=== PATIENT | female | born 1945 | race Caucasian/White ===

== ENCOUNTER → 2018-02-25 09:36 | Outpatient (BNVA) | payer MEDICARE, OTHER, SELFPAY | PROVIDERS: Visit Provider Surgery | DX: D12.6 Benign neoplasm of colon, unspecified (principal) | CPT/HCPCS: 99213 ==

== ENCOUNTER 2018-03-08 06:06 | Day surgery (SDC) | payer MEDICARE, SELFPAY ==
[2018-03-08 06:15] VITALS: BP 114/68; PULSE 67; RESP 16; TEMP 36.7; O2SAT 99
--- NOTE | 2018-03-08 06:30 | W.COLOREPORT ---
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 Castillo is a pleasant 72 year old who underwent a colonoscopy a few months ago and was found to have a sessile serrated adenoma with high grade dysplacia in the cecum. She is here today to have another colonoscopy and make sure the polyp has not regrown. Risks, benefits and complications have been reviewed. Complications include but are not limited to bleeding, pain, perforation, missed small lesion/polyp, sore throat, aspiration and adverse reaction to the medications. Questions were entertained and answered to their satisfaction and they wished to proceed. No guarantees were given or implied. Prep: Miralax/Dulcolax Procedure Start Time: 07:29 Procedure End Time: 08:03 Retraction Time: 22 minutes Findings: 4 small polyps. NO sessile polyp in the cecum. Moderate diverticulosis Procedure Description: After informed consent was obtained the patient was taken to the procedure room and placed in a left decubitous position. Monitors were applied and a time out was done. The patients name, date of , procedure, allergies to medications and metal in their body was reviewed. The patient was then sedated. Once sedated and comfortable a rectal exam was done. External exam was normal. Internal exam revealed a normal sphincter tone and no palpable masses. The scope was then introduced and retroflexed. No internal hemorrhoids were identified. The scope was then advanced to the cecum without difficulty. The TI and appendiceal orifice were identified. The prep was adequate. The scope was then slowly retracted over 22 minutes back into the rectum. 4 polyps were identified and removed with forceps. No sessile polyps were identified in the cecum. Scar tissue noted in the cecum without apparent re-growth. The scope was removed and the patient was woken up and taken back to Same day surgery in stable condition. The patient tolerated the procedure well and there were no immediate complications. Follow up: The patient should follow up in 3 years unless they develop changes in bowel habits or other new gastrointestinal complaints.
[2018-03-08] MEDS: Lactated Ringers 1,000 ML 80 ML IV (06:35)
--- NOTE | 2018-03-08 06:35 | PDOC.DSDIS_ITS ---
Discharge Plan Disposition Patient Disposition: HOME Condition: Good Discharge Details Reason For Visit: Colonoscopy Attending Provider: Vane Seals Primary Care Provider: Eugenia Caal Home Meds and New Rx's Prescriptions: Continue levothyroxine 100 MCG tablet 100 mcg PO DAILY RF: 0 acyclovir 800 MG tablet 800 mg PO PRN RF: 0 lysine [L-Lysine] 500 MG tablet 500 mg PO DAILY RF: 0 glucosamine sulfate 2KCl 1,000 MG tablet 1,600 mg PO DAILY RF: 0 fish oil-dha-epa 1 EACH capsule 1 ea PO DAILY RF: 0 Discharge Instructions Instructions: Colonoscopy (DC), Colorectal Polyps (DC) Additional Instructions: Findings: 4 small polyps Diverticulosis Follow up: 3 years New Medications: none Please call if you develop: fevers >101.5 Nausea or Vomiting Abdominal pain that is not transient DAY SURGERY UNIT POST COLONOSCOPY INSTRUCTIONS 1. Because there will be medication in your system for the next 24 hours, you may feel a little sleepy. Your coordination will be affected. Therefore: a. Do not drive or operate dangerous equipment for 24 hours. b. Do not drink alcohol beverages for 24 hours (not even beer). c. Plan to go home and rest for the day. 2. Generally there are no restrictions on your activity after a day or so has gone by, but you may feel a bit fatigued for a few days. 3 After you arrive home you may have a light meal and return to a normal diet as you can tolerate it without feeling sick to your stomach. 4. After surgery, you may feel pain or discomfort. This should be only transient , but if it persists please contact your doctor. 5. If there are any questions regarding the findings of your procedure, please feel free to contact your doctor. 6. If you are unable to contact your doctor with a problem, contact the hospital at [phone]. 7. Continue all your regular medications unless directed otherwise. I understand the above instructions and have no questions. Signature of Patient or Responsible Adult Escort Date/Time Name of Responsible Adult Escort Signature of Nurse Date/Time Activity:: Activity as Tolerated Diet:: high fiber diet Discharge Orders Discharge Orders: Discharge Order (Routine); Ordered 03/08/18 Ordered By: Vane Seals
--- NOTE | 2018-03-08 07:40 | BOWEL_PTH ---
PATIENT: Jessie Castillo LOC: [facility] U#:[id number] AGE/SX: 72/F ROOM: RE03/08/[address]: Vane Seals MD : 1945 BED: DIS: 03/08/2018 SPEC #: [id number] RECD: 03/08/18 12:42 STATUS: ROBYN REQ #: [id number] RASHEED: 03/08/18 07:[address]: Vane Seals DEPT: Surgical Specimen RECD BY: Yari Da Silva ENTERED: 03/08/18 12:44 SP TYPE: Bowel OTHR DR: Eugenia Caal Tissues: 1 - BIOPSY BOWEL 2 - BIOPSY BOWEL 3 - BIOPSY BOWEL 4 - BIOPSY BOWEL Procedures: GROSS AND MICRO LEVEL 4 Comments: [id number]
[2018-03-08 08:35] VITALS: BP 122/71; PULSE 61; RESP 16; TEMP 36.4; O2SAT 98
== END 2018-03-08 09:06 | disposition home or self-care (01) ==
PROVIDERS: PCP Nurse Practitioner Family; Visit Provider Surgery
PROC: 0DJD8ZZ Inspection of Lower Intestinal Tract, Via Natural or Artificial Opening Endoscopic (ICD-10-PCS; CPT 45378; principal; 2018-03-08 07:30)
DX: Z86.010 Personal history of colon polyps (principal); K57.30 Diverticulosis of large intestine without perforation or abscess without bleeding; D12.0 Benign neoplasm of cecum; D12.2 Benign neoplasm of ascending colon; D12.3 Benign neoplasm of transverse colon; D12.5 Benign neoplasm of sigmoid colon
CPT/HCPCS: 45380; 88305

== ENCOUNTER → 2018-03-08 07:53 | Outpatient (BNVA) | payer MEDICARE, SELFPAY | PROVIDERS: Visit Provider Surgery | DX: R69 Illness, unspecified (principal) ==

== ENCOUNTER 2018-09-13 09:22 | Outpatient (REF) | payer MEDICARE, SELFPAY ==
[2018-09-13 12:50] LABS: Anion Gap 7.8 mmol/L (3-11); BUN 20 mg/dL (7-18); CO2 29.2 mmol/L (21.0-32.0); CREATININE 0.98 mg/dL (0.55-1.02); Calcium 8.9 mg/dL (8.5-10.1); Chloride 103 mmol/L (98-107); Cholesterol 150 mg/dL (50-200); Estimated GFR 55.95 (mL/min/1.73m2); Glucose 96 mg/dL (70-100); HDL Cholesterol 81 mg/dL (40-60); LDL CHOLESTEROL 49 mg/dL (<100); Potassium 4.3 mmol/L (3.5-5.1); Sodium 140 mmol/L (136-145); Triglyceride 43 mg/dL (30-150)
== END 2018-09-13 09:42 ==
LOC: NCHCN 09:22
PROVIDERS: PCP Nurse Practitioner Family; Visit Provider Nurse Practitioner Family
DX: E03.9 Hypothyroidism, unspecified (principal); R73.09 Other abnormal glucose; N18.3 Chronic kidney disease, stage 3 (moderate)
CPT/HCPCS: 80048; 80061; 83721; 84443

== ENCOUNTER 2019-03-01 16:13 | Emergency (ER) | payer MEDICARE, SELFPAY ==
[2019-03-01 16:19] VITALS: BP 139/77; PULSE 105; RESP 20; O2SAT 92
--- NOTE | 2019-03-01 16:32 | W.ED.GENAD ---
Discharge Plan Disposition Patient Disposition: HOME Condition: Stable Discharge Details Chief Complaint: RespSymp Clinical Impression: Cough Primary Care Provider: Eugenia Caal ED Provider: Jony Walker Home Meds and New Rx's Prescriptions: New doxycycline hyclate 100 mg tablet 100 mg PO BID Qty: 14 RF: 0 Continued levothyroxine 100 MCG tablet 100 mcg PO DAILY RF: 0 acyclovir 800 MG tablet 800 mg PO PRN RF: 0 Discharge Instructions Instructions: Acute Cough (ED) Additional Instructions: if not better within a week see your primary care provider return to the emergency department if you feel you are becoming more ill, have worsening shortness of breath or pain Medical Decision Making 73 yo female who denies chronic medical problems comes in with chief complaint of cough for 3 weeks and also body aches and myalgias. Denies any travel, fevers, chest pain. She Is speaking in full sentences on exam, has mild wheezing at the apices bilaterally otherwise clear lungs, has clear rhinorrhea, no murmurs, no jvd or peripheral edema. Given her symptoms of cough and myalgias will evaluate for influenza and obtain cxr to evaluate for infiltrates. She has no evidence of dvt, and no pleuritic chest pain and her symptoms seem more infectious so doubt entities such as PE or acs. pt's labs and imaging negative other than lung nodule.. She remains stable. Given her cough has not improved over 2 weeks will tx as possible cap and have her f/u with her pcp. Return precautions given Differential Diagnosis Differential Diagnosis: uri, influenza, pna Imaging Data Radiologic Study: Attestation: I personally reviewed and interpreted this imaging study as follows: Imaging: X-Ray Lab Data Lab results reviewed: Yes I reviewed the patient's lab results. Labs: IMPRESSION: 1. No acute abnormality seen to account for the patient's cough. 2. Questionable nodule at the left lung apex that may just be pleural thickening. Apical lordotic view of the chest is recommended to evaluate further. HPI General Mode of arrival: ambulatory. Date/Time Provider Initiated Documentation: 03/01/19 16:24. Limitations to Documentation: no limitations. Information obtained by: patient. History of Present Illness 73 year old F presents to the emergency department with the chief complaint of cough, described as moderate, and it has been constant. No relieving factors improve symptom(s), No exacerbating factors reported . Patient did receive the following treatments prior to arrival, none Related Data Home Medications Medication Instructions Recorded Confirmed levothyroxine 100 mcg PO DAILY tab-cap 02/19/14 03/01/19 acyclovir 800 mg PO PRN 07/12/17 03/01/19 doxycycline hyclate 100 mg PO BID #14 tab 03/01/19 Previous Rx's Medication Instructions Recorded doxycycline hyclate 100 mg PO BID #14 tab 03/01/19 Allergies Allergy/AdvReac Type Severity Reaction Status Date / Time No Known Allergies Allergy Verified 03/08/18 06:14 General Stated Complaint: RespSymp GONZALES: 3 Review of Systems Review of Systems ROS Unobtainable: All systems reviewed & are unremarkable except as noted in HPI and below Constitutional Constitutional: Denies chills, Denies fever(s) and Denies weakness Gastrointestinal Gastrointestinal: Denies abdominal pain, Denies nausea and Denies vomiting Musculoskeletal Musculoskeletal: Denies joint swelling Neurologic Neurologic: Denies weakness Endocrine Endocrine: Denies heat intolerance PENDING SALE TO [facility] Medical History (Updated 02/25/18 @ 10:03 by Vane Seals MD) High grade dysplasia in colonic adenoma (Acute) Hypothyroidism associated with surgical procedure Tubular adenoma of colon Surgical History Colonoscopy - MAC (04/20/14) Colonoscopy - MAC (08/16/17) thyroidectomy Family History (Updated 02/25/18 @ 10:04 by Vane Seals MD) Maternal Grandfather No problems noted. Maternal Grandmother Diabetes Social History (Updated 02/25/18 @ 10:05 by Vane Seals MD) Smoking/Tobacco Use Status: Never Alcohol Intake: current Alcohol Intake frequency: holidays/special occasions only Drug use: Occasionally Substance use type: does not use Exam Const General: no acute distress Orientation: alert HENMT Head: normal to inspection Ears: external ears normal General nose exam: external nose normal Mouth: moist mucous membranes Eyes General: appearance normal, both eyes and all related structures Neck Neck: normal visual inspection Resp Effort & Inspection: normal respiratory effort and able to speak in complete sentences Cardio Rate: regular rate Skin General skin exam: no rashes or lesions noted Neuro General: alert and oriented x3 Extrem General: normal to inspection Psych Mental Status: mental status grossly normal Course Vital Signs Vital signs: Vital Signs Pulse 105 H 03/01/19 16:19 Respiratory Rate 20 03/01/19 16:19 Blood Pressure 139/77 03/01/19 16:19 Pulse Oximetry 92 L 03/01/19 16:19 Pulse 105 H 03/01/19 16:19 Respiratory Rate 20 03/01/19 16:19 Blood Pressure 139/77 03/01/19 16:19 Blood Pressure Position Sitting 03/01/19 16:19 Pulse Oximetry 92 L 03/01/19 16:19 Oxygen Delivery Method Room Air 03/01/19 16:19 Oxygen Flow Rate 0 03/01/19 16:19
[2019-03-01] MEDS: Albuterol/Ipratropium 3 ML UPD VIAL UPD (16:40)
[2019-03-01 16:48] LABS: Abs Immature Grans 0.03 k/cumm (0.0-0.09); Absolute Basophil Count 0.03 k/cumm (0.0-0.2); Absolute Eosinophil Count 0.01 k/cumm (0.0-0.7); Absolute Lymphocyte Count 0.74 k/cumm (1.2-3.4); Absolute Monocyte Count 1.33 k/cumm (0.11-0.7); Absolute Neutrophil Count 12.35 k/cumm (1.2-6.7); Basophils % 0.2; Eosinophils % 0.1; HGB 12.7 g/dL (12.0-15.5); Immature Grans % 0.2; Lymphocytes % 5.1; Mean Corp. HGB Concentration 34.3 g/dL (32.0-36.0); Mean Corpuscular Hemoglobin 32.2 pg (27.0-33.0); Mean Corpuscular Volume 93.7 fL (80-95); Mean Platelet Volume 9.1 fL (8.0-11.0); Monocytes % 9.2; Neutrophils % 85.2; Platelet Count 253 x1000/uL (130-400); RBC 3.95 m/cumm (4.00-5.20); RBC Distribution Width 13.1 % (11.7-14.6); White Blood Cell Count 14.49 k/cumm (4.4-10.8)
--- NOTE | 2019-03-01 17:01 | DI.RAD_ITS ---
EXAM: XR CHEST 2V PA LATERAL INDICATION: cough. COMPARISON: No exams were available for comparison TECHNIQUE: 2D digital imaging was performed. FINDINGS: The lungs are well expanded and free of infiltrate. There is no pleural effusion. The cardiovascular structures are intact. IMPRESSION: No evidence of acute cardiopulmonary disease.
[2019-03-01 17:10] VITALS: RESP 1
[2019-03-01 17:11] LABS: ALT 20 U/L (14-59); AST 22 U/L (15-37); Albumin 3.6 g/dL (3.4-5.0); Alkaline Phosphatase 70 U/L (46-116); BUN 12 mg/dL (7-18); CREATININE 0.95 mg/dL (0.55-1.02); Calcium 8.3 mg/dL (8.5-10.1); Chloride 98 mmol/L (98-107); Estimated GFR 57.99 (mL/min/1.73m2); Glucose 133 mg/dL (70-100); Potassium 3.5 mmol/L (3.5-5.1); Sodium 134 mmol/L (136-145); Total Protein 7.4 g/dL (6.4-8.2)
--- NOTE | 2019-03-01 17:37 | DI.VRAD_ITS ---
PROCEDURE INFORMATION: Exam: XR Chest, 2 Views Exam date and time: 03/01/2019 5:04 PM Clinical history: 73 years old, female; Cough TECHNIQUE: Imaging protocol: XR of the chest Views: 2 views. COMPARISON: No relevant prior studies available. FINDINGS: Lungs: The lungs lungs are mildly hyperinflated. There is no focal consolidation. Pleural space: At the left lung apex there is a questionable area of pleural thickening versus tiny nodule. Heart/Mediastinum: Unremarkable. No cardiomegaly. Vasculature: There is mild atherosclerosis of the thoracic aorta. Bones/joints: There is mild rotary scoliosis of the thoracic spine. There is mildly severe spondylosis in the lower thoracic spine with large anterolateral osteophytes. IMPRESSION: 1. No acute abnormality seen to account for the patient's cough. 2. Questionable nodule at the left lung apex that may just be pleural thickening. Apical lordotic view of the chest is recommended to evaluate further. Dictated and Authenticated by: Jony Nguyen MD. Ordering:PASTORA Borges MD
[2019-03-01 18:10] VITALS: BP 131/67; PULSE 82; RESP 16; O2SAT 92
[2019-03-01] MEDS: Doxycycline Hyclate 100 MG CAP PO (18:13)
== END 2019-03-01 18:15 | disposition home or self-care (01) ==
PROVIDERS: Emergency Provider Emergency Medicine; PCP Nurse Practitioner Family
DX: R05 Cough (principal); R91.1 Solitary pulmonary nodule
CPT/HCPCS: 36415; 80053; 87449; 94640; 99284; 71046; 85025; J7620

== ENCOUNTER → 2019-08-24 08:49 | Outpatient (BNVA) | payer OTHER, SELFPAY | PROVIDERS: PCP Nurse Practitioner Family; Referring Provider Nurse Practitioner Family; Visit Provider Physical Therapy Assistant | DX: Z86.010 Personal history of colon polyps (principal); Z12.11 Encounter for screening for malignant neoplasm of colon ==

== ENCOUNTER → 2020-04-23 11:26 | Outpatient (BNVA) | payer OTHER, SELFPAY | PROVIDERS: PCP Nurse Practitioner Family; Referring Provider Nurse Practitioner; Visit Provider Surgery | DX: Z12.11 Encounter for screening for malignant neoplasm of colon (principal); Z86.010 Personal history of colon polyps ==

== ENCOUNTER 2020-04-23 12:29 | Outpatient (REF) | payer OTHER, SELFPAY ==
[2020-04-23 19:32] LABS: TSH (W/Ref FT4) 1.85 uIU/mL (0.36-3.74)
== END 2020-04-23 12:49 ==
LOC: NCHCN 12:29
PROVIDERS: PCP Nurse Practitioner Family; Visit Provider Nurse Practitioner
DX: E03.9 Hypothyroidism, unspecified (principal)
CPT/HCPCS: 84443

== ENCOUNTER 2020-05-13 07:15 | Day surgery (SDC) | payer OTHER, SELFPAY ==
--- NOTE | 2020-05-13 06:59 | W.COLOREPORT ---
Date of service: 05/13/20 Time of Service: 08:10 Colonoscopy Report Date of procedure: 05/13/20 Pre-op diagnosis general: Hx of colon polyps Post-op diagnosis procedure note: same (multiple polyps and diverticulosis) Procedure: Colonoscopy with polypectomy Surgeon: Vane Seals Anesthesia proc note operative: other (General/ASA 2/[address], [place]) Estimated blood loss (mL): 5 Pathology: other (Cecal polyp, ascending polyp x5, hepatic flexure, transverse polyps, descending polyp x2, sigmoid polyp, rectal polyp x2) Complications: None Disposition: same day Indications: Mrs. Castillo is a pleasant 74-year-old female who is here for follow-up colonoscopy. In August 2017 she was noted to have several tubular adenomas as well as a sessile serrated adenoma. The tubular adenoma in the cecum was noted to have focal high-grade dysplasia. She had a follow-up colonoscopy in March 2019 and was noted to have 4 more tubular adenomas. She is now 2 years out and due for another colonoscopy. She has had no changes in her health. She continues to be healthy and active. Her only medication is levothyroxine. We did discuss Covid and Covid testing. We reviewed the quarantine requirements after testing. The procedure was described in detail as well as its complications and risks. We will schedule for colonoscopy under sedation and Covid testing 3 to 4 days prior to the procedure. Risks, benefits and complications have been reviewed. Complications include but are not limited to bleeding, pain, perforation, missed small lesion/polyp, sore throat, aspiration and adverse reaction to the medications. Questions were entertained and answered to their satisfaction and they wished to proceed. No guarantees were given or implied Prep: Miralax/Dulcolax Procedure Start Time: 08:10 Procedure End Time: 09:01 Retraction Time: 40 minutes Findings: 15 small polyps mild sigmoid diverticulosis Procedure Description: After informed consent was obtained the patient was taken to the procedure room and placed in a left decubitous position. Monitors were applied and a time out was done. The patients name, date of , procedure, allergies to medications and metal in their body was reviewed. The patient was then sedated. Once sedated and comfortable a rectal exam was done. External exam was normal. Internal exam revealed a normal sphincter tone and no palpable masses. The scope was then introduced and retro-flexed. No internal hemorrhoids were identified. The scope was then advanced to the cecum without difficulty. The ileocecal valve and appendiceal orifice were identified. The prep was good. The scope was then slowly retracted over 40 minutes back into the rectum. Polyps were removed with cold forceps in the cecum, ascending colon x5, hepatic flexure, transverse colon x3, descending colon x2, sigmoid polyp, rectal polyp x2. There was mild diverticulosis of the sigmoid colon. The scope was removed and the patient was woken up and taken back to Same day surgery in stable condition. The patient tolerated the procedure well and there were no immediate complications. Follow up: The patient should follow up in 2-3 years unless they develop changes in bowel habits or other new gastrointestinal complaints.
--- NOTE | 2020-05-13 07:01 | W.PM.DSUDISC ---
Discharge Plan Disposition Patient Disposition: HOME Condition: Good Discharge Details Reason For Visit: Colonoscopy Attending Provider: Vane Seals Primary Care Provider: Tiffany Cronin Home Meds and New Rx's Prescriptions: Continued levothyroxine 100 MCG tablet 100 mcg PO DAILY RF: 0 acyclovir 800 MG tablet 800 mg PO PRN RF: 0 Discontinued bisacodyl [Dulcolax (bisacodyl)] 5 mg tablet,delayed release (DR/EC) 5 mg PO ONCE Qty: 4 RF: 0 polyethylene glycol 3350 17 gram powder in packet 255 g PO DAILY Qty: 15 RF: 0 Discharge Instructions Instructions: Diverticulosis (DC), Colorectal Polyps (DC) Additional Instructions: Findings: multiple polyps 15 diverticulosis Follow up: depends on final pathology results Please call if you develop: fevers >101.5 Nausea or Vomiting Abdominal pain that is not transient DAY SURGERY UNIT POST ENDOSCOPY INSTRUCTIONS 1. Because there will be medication in your system for the next 24 hours, you may feel a little sleepy. Your coordination will be affected. Therefore: a. Do not drive or operate dangerous equipment for 24 hours. b. Do not drink alcohol beverages for 24 hours (not even beer). c. Plan to go home and rest for the day. 2. Generally there are no restrictions on your activity after a day or so has gone by, but you may feel a bit fatigued for a few days. 3 After you arrive home you may have a light meal and return to a normal diet as you can tolerate it without feeling sick to your stomach. 4. After surgery, you may feel pain or discomfort. This should be only transient, but if it persists please contact your doctor. 5. If there are any questions regarding the findings of your procedure, please feel free to contact your doctor. 6. If you are unable to contact your doctor with a problem, contact the hospital at [phone]. 7. Continue all your regular medications unless directed otherwise. I understand the above instructions and have no questions. Signature of Patient or Responsible Adult Escort Date/Time Name of Responsible Adult Escort Signature of Nurse Date/Time Activity:: Activity as Tolerated Diet:: high fiber diet Discharge Orders Discharge Orders: Discharge Order (Routine); Ordered 05/13/20 Ordered By: Vane Seals
[2020-05-13 07:28] VITALS: BP 128/79; PULSE 71; RESP 16; TEMP 36.4; O2SAT 97
[2020-05-13] MEDS: Lactated Ringers 1,000 ML 80 ML IV (07:44)
--- NOTE | 2020-05-13 08:23 | BOWEL_PTH ---
PATIENT: Jessie Castillo LOC: [facility] U#:[id number] AGE/SX: 74/F ROOM: RE05/13/[address]: Vane Seals MD : 1945 BED: DIS: 05/13/2020 SPEC #: [id number] RECD: 05/13/20 12:25 STATUS: ROBYN REAnette #: [id number] RASHEED: 05/13/20 08:[address]: Vane Seals DEPT: Surgical Specimen RECD BY: Yari Da Silva ENTERED: 05/13/20 12:29 SP TYPE: Bowel OTHR DR: Tiffany Cronin Tissues: 1 - BIOPSY BOWEL 2 - BIOPSY BOWEL 3 - BIOPSY BOWEL 4 - BIOPSY BOWEL 5 - BIOPSY BOWEL 6 - BIOPSY BOWEL 7 - BIOPSY BOWEL Procedures: GROSS AND MICRO LEVEL 4 Comments: [id number]
[2020-05-13 09:35] VITALS: BP 107/64; PULSE 63; RESP 16; TEMP 36.4; O2SAT 97
== END 2020-05-13 10:00 | disposition home or self-care (01) ==
LOC: SUR 07:15
PROVIDERS: PCP Nurse Practitioner; Visit Provider Surgery
PROC: 0DJD8ZZ Inspection of Lower Intestinal Tract, Via Natural or Artificial Opening Endoscopic (ICD-10-PCS; CPT 45378; principal; 2020-05-13 08:15)
DX: Z12.11 Encounter for screening for malignant neoplasm of colon (principal); Z86.010 Personal history of colon polyps; D12.0 Benign neoplasm of cecum; D12.2 Benign neoplasm of ascending colon; D12.3 Benign neoplasm of transverse colon; K57.30 Diverticulosis of large intestine without perforation or abscess without bleeding; D12.4 Benign neoplasm of descending colon
CPT/HCPCS: 45380; 88305; J2001; J2704

== ENCOUNTER 2020-10-14 01:31 | Outpatient (CLI) | payer OTHER, SELFPAY ==
--- NOTE | 2020-10-14 | DI.RAD_ITS ---
Exam(s) XR CHEST 2V PA LATERAL EXAM: XR CHEST 2V PA LATERAL CLINICAL HISTORY: F/U FRANCISCO JAVIER NODULE. TECHNIQUE: 2D digital imaging was performed. COMPARISON: CR,XR XR CHEST 2V PA LATERAL from 03/01/2019 FINDINGS: Heart size is normal. The mediastinum is not widened. On the lateral view there is nodular density projected over the anterior aspect heart few cm above th e hemidiaphragm, this measuring 1.3 x 0.9 cm, not evident on the prior 2019 study. Also not well see n on the frontal view. No pleural effusions. No pneumothorax. No pulmonary edema. IMPRESSION: On the lateral view there is a 13 x 9 millimeter nodule seen anteriorly which was not evident on the prior [address] scan is recommended. DATA REPOSITORY: RADIATION DOSE DELIVERED:
== END 2020-10-14 01:51 ==
PROVIDERS: PCP Nurse Practitioner; Visit Provider Family Medicine
DX: R91.1 Solitary pulmonary nodule (principal)
CPT/HCPCS: 71046

== ENCOUNTER 2020-10-18 11:25 | Outpatient (REF) | payer OTHER, SELFPAY ==
[2020-10-18 16:26] LABS: CREATININE 0.9 mg/dL (0.55-1.02)
== END 2020-10-18 11:26 | disposition home or self-care (01) ==
LOC: NCHCN 11:25
PROVIDERS: PCP Nurse Practitioner; Visit Provider Family Medicine
DX: R91.1 Solitary pulmonary nodule (principal); Z01.818 Encounter for other preprocedural examination
CPT/HCPCS: 82565

== ENCOUNTER 2020-10-22 01:15 | Outpatient (CLI) | payer OTHER, SELFPAY ==
--- NOTE | 2020-10-22 08:39 | DI.CT_ITS ---
Exam(s) CT CHEST W EXAM: CT CHEST W CLINICAL HISTORY: NODULE FOUND ON CXR,R91.1 TECHNIQUE: Imaging Protocol: Axial computed tomography images with coronal and sagittal reformatted images were created and reviewed CONTRAST MATERIAL: Intravenous: Omnipaque 350 Contrast volume:70 cc COMPARISON: CR XR CHEST 2V PA LATERAL from 10/14/2020 FINDINGS: Tracheobronchial tree: Patent where visualized. Mediastinum and Fiorella: No dominant adenopathy or fluid collection. Pulmonary parenchyma: No consolidation or dominant measurable mass. Mild biapical scarring. Mild ate lectasis or scarring at the lung bases. No noncalcified pulmonary nodules. A few tiny calcified nod ules are seen. No infiltrate. Pleura: No effusion or pneumothorax. Heart: The heart is not dilated. No coronary artery calcifications are seen. Aorta: Thoracic aorta non-dilated. Upper abdomen: Unremarkable. Lymph nodes: Within normal limits. Bones: Degenerative changes and mild scoliosis. Soft tissues: Unremarkable. IMPRESSION: Mild apical scarring. No evidence of suspicious pulmonary nodule. The findings on recent chest x-ra y correspond to calcified costal cartilage. RADIATION DOSE DELIVERED: 495.16mGy.cm Total DLP DATA REPOSITORY: All CT scans at this facility are submitted to the National Radiology Data Registry (NRDR) Dose Index Registry (DIR) with the [employer] ([employer]). RADIATION OPTIMIZATION: All CT scans at this facility use at least one of these dose optimization te chniques: automated exposure control; mA and/or kV adjustment per patient size (includes targeted exa ms where dose is matched to clinical indication); or iterative reconstruction.
[2020-10-22] MEDS: Omnipaque 350 MG/ML 100 ML BTL IJ (08:40)
[2020-10-22] MEDS: Normal Saline - Diluent 50 ML VIAL IV (08:40)
== END 2020-10-22 01:35 ==
PROVIDERS: PCP Nurse Practitioner; Visit Provider Family Medicine
DX: R91.1 Solitary pulmonary nodule (principal); J98.4 Other disorders of lung
CPT/HCPCS: 71260; J3490

== ENCOUNTER 2021-03-04 11:16 | Outpatient (REF) | payer OTHER, SELFPAY | END 2021-03-04 11:17 | disposition home or self-care (01) | LOC: LBN 11:16 | PROVIDERS: PCP Nurse Practitioner; Visit Provider Nurse Practitioner Family | DX: N39.0 Urinary tract infection, site not specified (principal) | CPT/HCPCS: 87077; 87086; 87186 ==

== ENCOUNTER 2021-12-10 18:47 | Outpatient (REF) | payer MEDICARE, SELFPAY ==
[2021-12-10 16:16] LABS: ALT 20 U/L (14-59); AST 23 U/L (15-37); Albumin 3.9 g/dL (3.4-5.0); Alkaline Phosphatase 51 U/L (46-116); BUN 22 mg/dL (7-18); Bilirubin, Total 0.4 mg/dL (0.2-1.0); CREATININE 0.9 mg/dL (0.55-1.02); Calcium 8.7 mg/dL (8.5-10.1); Chloride 103 mmol/L (98-107); Glucose 93 mg/dL (74-106); Sodium 138 mmol/L (136-145); Total Protein 6.9 g/dL (6.4-8.2)
== END 2021-12-10 18:48 | disposition home or self-care (01) ==
LOC: NCHCN 18:47
PROVIDERS: PCP Nurse Practitioner; Visit Provider Nurse Practitioner Family
DX: R73.03 Prediabetes (principal); E03.9 Hypothyroidism, unspecified; N18.30 Chronic kidney disease, stage 3 unspecified
CPT/HCPCS: 80053; 83036; 84443

== ENCOUNTER → 2022-01-23 00:10 | Outpatient (CLI) | payer MEDICARE, SELFPAY ==
--- NOTE | 2022-01-23 14:45 | DI.MAMMO_ITS ---
Exam(s) MAMMO SCREENING EXAM: MAMMO SCREENING CLINICAL HISTORY: SCREENING FOR BREAST CANCER Z12.39 TECHNIQUE: Mammograms were interpreted according to the usual protocol including computer analysis w Prepared Response CAD system, tomosynthesis and C-view imaging. COMPARISON: 2013 through 2019 from [facility]. FINDINGS: The breasts are composed of heterogeneously dense fibroglandular densities, Breast Density category C . No suspicious masses or suspicious microcalcifications are seen. Vascular calcifications are inciden tally noted. No skin thickening or abnormal axillary lymph nodes are seen. There has been no significant change from prior exams. IMPRESSION: BI-RADS Category 1, Negative mammogram. Yearly screening mammography is recommended. Breast Density Category C, heterogeneously Dense. The mammogram demonstrates the patient's breast tissue is dense. Dense breast tissue is very common a nd is not abnormal but dense breast tissue can make it harder to find cancer on a mammogram. Also, de nse breast tissue may increase breast cancer risk. This information about the result of the mammogram report was provided to the patient to raise their awareness. Use this report when you speak with the patient about their risks for breast cancer, which includes their family history. At that time, you may recommend additional screening tests (Ultrasound or MRI) as they might be useful based on their r isk. A negative radiographic report should not delay biopsy if a dominant or clinically suspicious mass is present. Up to ten percent of cancers are not identified on mammography. A negative report may reinforce clinical impression. Adenosis and dense breasts may obscure an underlying neoplasm. False positive reports average 6 to 10%.
== END ==
PROVIDERS: PCP Nurse Practitioner; Visit Provider Nurse Practitioner Family
DX: Z12.31 Encounter for screening mammogram for malignant neoplasm of breast (principal); R92.8 Other abnormal and inconclusive findings on diagnostic imaging of breast
CPT/HCPCS: 77063; 77067

== ENCOUNTER 2022-12-15 16:31 | Outpatient (REF) | payer MEDICARE, SELFPAY ==
[2022-12-15 19:48] LABS: Anion Gap 6.3 mmol/L (3-11); BUN 17 mg/dL (7-18); CO2 29.7 mmol/L (21.0-32.0); Calcium 8.6 mg/dL (8.5-10.1); Chloride 104 mmol/L (98-107); Estimated GFR 58.75 (mL/min/1.73m2); Glucose 97 mg/dL (74-106); Potassium 4.5 mmol/L (3.5-5.1); Sodium 140 mmol/L (136-145); TSH (W/Ref FT4) 1.79 uIU/mL (0.36-3.74)
[2022-12-15 22:04] LABS: Hemoglobin A1C 5.9 % (<5.7)
== END 2022-12-15 16:32 | disposition home or self-care (01) ==
LOC: NCHCN 16:31
PROVIDERS: PCP Nurse Practitioner; Visit Provider Nurse Practitioner Family
DX: R73.03 Prediabetes (principal); N18.30 Chronic kidney disease, stage 3 unspecified; E03.9 Hypothyroidism, unspecified; B00.89 Other herpesviral infection
CPT/HCPCS: 80048; 83036; 84443

== ENCOUNTER 2023-07-31 10:07 | Emergency (ER) | payer MEDICARE, SELFPAY ==
[2023-07-31 10:14] VITALS: BP 143/78; PULSE 80; RESP 18; TEMP 36.9; O2SAT 95
[2023-07-31] MEDS: Albuterol/Ipratropium 3 ML UPD VIAL UPD (10:55)
[2023-07-31] MEDS: predniSONE 20 MG TAB 40 MG PO (10:56)
[2023-07-31] MEDS: Ondansetron O.D.T. 4 MG TABEF PO (10:56)
[2023-07-31 11:55] LABS: COVID-19 PCR Negative (Negative); Influenza A PCR Positive (Negative); Influenza B PCR Negative (Negative); RSV PCR Negative (Negative)
[2023-07-31 11:56] LABS: Source Nasopharynx
--- NOTE | 2023-07-31 12:02 | DI.RAD_ITS ---
Exam(s) XR CHEST 2V PA LATERAL EXAM: XR CHEST 2V PA LATERAL CLINICAL HISTORY: cough. TECHNIQUE: 2D digital imaging was performed. COMPARISON: CR XR CHEST 2V PA LATERAL from 10/14/2020 FINDINGS: 2 views: Heart size is normal. The mediastinum is not widened. Lungs are clear. No infiltrates nor pleural effusions. IMPRESSION: No acute pulmonary findings. DATA REPOSITORY: RADIATION DOSE DELIVERED:
--- NOTE | 2023-07-31 12:16 | DI.VRAD_ITS ---
PROCEDURE INFORMATION: Exam: XR Chest Exam date and time: 07/31/2023 11:59 AM Age: 77 years old Clinical indication: Shortness of breath TECHNIQUE: Imaging protocol: Radiologic exam of the chest. Views: 2 views. COMPARISON: CT CHEST W 10/22/2020 8:32 AM FINDINGS: Lungs: No focal consolidation. Pleural spaces: No significant pleural fluid. No pneumothorax detected. Heart/Mediastinum: Heart size within normal range. No pulmonary vascular congestion. Bones/joints: No obvious acute abnormality. IMPRESSION: No active chest disease identified. Dictated and Authenticated by: Charles Garza MD. Ordering:DARRIUS Greenberg MD
[2023-07-31 12:32] VITALS: PULSE 78; RESP 18; O2SAT 97
--- NOTE | 2023-07-31 14:49 | ED.GENADUL_ITS ---
Discharge Plan Disposition Patient Disposition: Home Condition: Stable Discharge Details Clinical Impression: Influenza A Primary Care Provider: Tiffany Cronin ED Provider: Yari Ford Home Meds and New Rx's Prescriptions: New prednisone 20 mg tablet 40 mg PO ONCE Qty: 10 0RF albuterol sulfate [ProAir HFA] 90 mcg/actuation HFA aerosol inhaler 2 puff inhalation Q6H PRNQty: 6.7 0RF ondansetron 4 mg tablet,disintegrating 4 mg PO TID PRN PRN5 Days Qty: 10 0RF Continued levothyroxine 100 MCG tablet 100 mcg PO DAILY acyclovir 800 MG tablet 800 mg PO PRN Discharge Instructions Instructions: H1N1 Influenza (ED) Additional Instructions: Increase fluids Boost, Ensure Zofran as needed for nausea and vomiting Inhaler 2 puffs every 4-6 hours as needed for cough, wheeze, shortness of breath, prednisone daily for cough, wheeze, shortness of breath, you received a dose today already Please return earlier should you have new or worsening complaints Stand Alone Forms: Work Release Discharge Data Discharge Date/Time-TO BE ENTERED AT DEPARTURE: 07/31/23 12:35 HPI General Date/Time Provider Initiated Documentation: 07/31/23 10:19 . HPI Narrative: This 77-year-old female presents with cough and congestion x 5 days. Has was sick with similar symptoms. Experiencing anorexia. Denies shortness of breath. Related Data Home Medications Medication Instructions Recorded Confirmed levothyroxine 100 mcg tablet 100 mcg PO DAILY 02/19/07/31/23 acyclovir 800 mg tablet 800 mg PO PRN 07/12/17 07/31/23 albuterol sulfate 90 mcg/actuation 2 puff inhalation Q6H PRN #6.7 07/31/23 aerosol inhaler (ProAir HFA) grams ondansetron 4 mg disintegrating 4 mg PO TID PRN PRN 5 days #10 tabs 07/31/23 tablet prednisone 20 mg tablet 40 mg (2 x 20 mg) PO ONCE #10 tabs 07/31/23 Previous Rx's Medication Instructions Recorded albuterol sulfate 90 mcg/actuation 2 puff inhalation Q6H PRN #6.7 07/31/23 aerosol inhaler (ProAir HFA) grams ondansetron 4 mg disintegrating 4 mg PO TID PRN PRN 5 days #10 tabs 07/31/23 tablet prednisone 20 mg tablet 40 mg (2 x 20 mg) PO ONCE #10 tabs 07/31/23 Allergies Allergy/AdvReac Type Severity Reaction Status Date / Time No Known Allergies Allergy Verified 07/31/23 10:15 General Stated Complaint: RespSymp GONZALES: 4 Course Vital Signs Vital signs: Vital Signs Temperature 36.9 C 07/31/23 10:14 Pulse 80 07/31/23 10:14 Respiratory Rate 18 07/31/23 10:14 Blood Pressure 143/78 H 07/31/23 10:14 Pulse Oximetry 95 07/31/23 10:14 Temperature 36.9 C 07/31/23 10:14 Temperature Source Oral 07/31/23 10:14 Pulse 78 07/31/23 12:32 Respiratory Rate 18 07/31/23 12:32 Respiratory Effort Normal, Non-Labored 07/31/23 12:32 Respiratory Depth Normal 07/31/23 12:32 Blood Pressure 143/78 H 07/31/23 10:14 Blood Pressure Position Sitting 07/31/23 10:14 Pulse Oximetry 97 07/31/23 12:32 Oxygen Delivery Method Room Air 07/31/23 10:14 Oxygen Flow Rate 0 07/31/23 10:14 Pain Level 0 07/31/23 10:14 Lab/Test Results Lab/Test Results: Laboratory Tests Range/Units 07/31/23 11:05 COVID-19 Source Nasopharynx SARS-CoV-2 (PCR) (Negative) Negative Influenza Type A (PCR) (Negative) Positive A Influenza Type B (PCR) (Negative) Negative RSV (PCR) (Negative) Negative Medical Decision Making This 77-year-old female presents with report of cough x 5 days Patient appears well, vitals are stable Chest x-ray does not show evidence of acute abnormality per radiology interpretation my review lungs clear to auscultation, cardiac rate rhythm regular, moist mucous membranes, speaking in complete sentences, no respiratory distress Given Prabha [place], feeling mild symptomatic improvement Influenza A positive Patient appears well, encouraged to continue supportive care, not a candidate for Tamiflu secondary to longevity of illness Return precautions reviewed and patient expressed understanding Quality:SDOH Health Related Social Needs: No Data to Display PFSH All Active Problems (Updated 07/31/23 @ 12:12 by RADHA Haynes) Influenza A (Acute) Colon polyp, hyperplastic (Acute) Tubular adenoma (Acute) High grade dysplasia in colonic adenoma (Acute) Medical History (Updated 07/31/23 @ 12:12 by RADHA Haynes) Tubular adenoma of colon Hypothyroidism associated with surgical procedure Surgical History thyroidectomy Colonoscopy - MAC (08/16/17) 08/2017- Tubular adenomas one with high grade dysplasia, sessile serrated 03/2018- Tubal adenomas x4 Colonoscopy - MAC (04/20/14) Family History Maternal Grandfather No problems noted. Maternal Grandmother Diabetes Social History (Updated 02/25/18 @ 10:05 by Vane Seals MD) Smoking/Tobacco Use Status: Never Smoking risk assessment performed?: Yes Alcohol Intake: current Alcohol Intake frequency: 0-2 drinks per day Alcohol type: wine Drug use: Occasionally Substance use type: marijuana Housing: house Current gender identity: female Do you feel safe at home: Yes Do you feel safe in your relationship?: Yes
== END 2023-07-31 12:35 | disposition home or self-care (01) ==
PROVIDERS: Emergency Provider Physician Assistant; PCP Nurse Practitioner
DX: J10.1 Influenza due to other identified influenza virus with other respiratory manifestations (principal); R05.1 Acute cough
CPT/HCPCS: 87637; 94640; 99283; 71046; J7512; J7620

== ENCOUNTER 2023-08-19 10:25 | Emergency (ER) | payer MEDICARE, SELFPAY ==
[2023-08-19 11:06] VITALS: BP 146/91; PULSE 84; RESP 16; TEMP 36.7; O2SAT 95
--- NOTE | 2023-08-19 11:15 | DI.RAD_ITS ---
Exam(s) XR CHEST 2V PA LATERAL EXAM: XR CHEST 2V PA LATERAL CLINICAL HISTORY: cough for one month. TECHNIQUE: 2D digital imaging was performed. COMPARISON: CR,XR XR CHEST 2V PA LATERAL from 07/31/2023 FINDINGS: 2 views: Heart size is normal. The mediastinum is not widened. Left lung is clear. However, there is subtle patchy infiltrate in the lower right lung field. No pl eural effusions. No pulmonary edema. IMPRESSION: Patchy infiltrate in the right lower lung field. Follow-up to resolution recommended. There are no pleural effusions. DATA REPOSITORY: RADIATION DOSE DELIVERED:
--- NOTE | 2023-08-19 11:16 | ED.GENADUL_ITS ---
Discharge Plan Disposition Patient Disposition: Home Condition: Improving Discharge Details Clinical Impression: Pneumonia Primary Care Provider: JOSEFINA THOMAS ED Provider: Juan Carlos Fleming Home Meds and New Rx's Prescriptions: New amoxicillin-pot clavulanate 875-125 mg tablet 1 tab PO BID 7 Days Qty: 14 0RF azithromycin 250 mg tablet 250 mg PO DAILY 4 Days Qty: 4 0RF Rx Instructions: start on day 2 of therapy No Action levothyroxine 100 MCG tablet 100 mcg PO DAILY acyclovir 800 MG tablet 800 mg PO PRN albuterol sulfate [ProAir HFA] 90 mcg/actuation HFA aerosol inhaler 2 puff inhalation Q6H PRNQty: 6.7 0RF Discharge Instructions Instructions: Pneumonia (ED) HPI General Date/Time Provider Initiated Documentation: 08/19/23 11:15 . HPI Narrative: 78-year-old female diagnosed with the flu approximately 1 month ago presents with persistent dry cough, unintentional 70 pound weight loss, night sweats, denies recent travel denies history of TB. Related Data Home Medications Medication Instructions Recorded Confirmed levothyroxine 100 mcg tablet 100 mcg PO DAILY 02/19/14 08/19/23 acyclovir 800 mg tablet 800 mg PO PRN 07/12/17 08/19/23 albuterol sulfate 90 mcg/actuation 2 puff inhalation Q6H PRN #6.7 07/31/23 08/19/23 aerosol inhaler (ProAir HFA) grams amoxicillin 875 mg-potassium 1 tab PO BID 7 days #14 tabs 08/19/23 clavulanate 125 mg tablet azithromycin 250 mg tablet 250 mg PO DAILY 4 days #4 tabs 08/19/23 Previous Rx's Medication Instructions Recorded albuterol sulfate 90 mcg/actuation 2 puff inhalation Q6H PRN #6.7 07/31/23 aerosol inhaler (ProAir HFA) grams amoxicillin 875 mg-potassium 1 tab PO BID 7 days #14 tabs 08/19/23 clavulanate 125 mg tablet azithromycin 250 mg tablet 250 mg PO DAILY 4 days #4 tabs 08/19/23 Allergies Allergy/AdvReac Type Severity Reaction Status Date / Time No Known Allergies Allergy Verified 08/19/23 11:05 General Stated Complaint: RespSymp GONZALES: 3 Review of Systems Narrative: Review of Systems Constitutional: negative Eyes: negative ENT: negative Cardiovascular: negative Respiratory: Cough Gastrointestinal: negative : negative Musculoskeletal: negative Skin: negative Neurologic: negative Psych: negative Exam Narrative Exam Narrative: Physical Examination General: alert, awake, cooperative, resting comfortably, no acute distress HEENT: normocephalic, atraumatic; PERRL, EOM intact, conjunctiva normal; no nasal discharge; moist mucous membranes, oral and pharyngeal mucosa normal, tolerating secretions Neck: supple, trachea midline; full ROM Chest: normal to inspection Respiratory: normal respiratory effort, speaking in full sentences, clear to auscultation, no wheezing, rales or rhonchi Cardiac: regular rate, regular rhythm, S1S2 intact, no murmurs rubs or gallops GI: abdomen soft, non-tender, non-distended; no palpable mass or hepatosplenomegaly Skin: no lesions, rashes or trauma appreciated Neuro: AAOx3, normal speech, moving all extremities Psych: Appropriate mood and affect Course Vital Signs Vital signs: Vital Signs Temperature 36.7 C 08/19/23 11:06 Pulse 84 08/19/23 11:06 Respiratory Rate 16 08/19/23 11:06 Blood Pressure 146/91 H 08/19/23 11:06 Pulse Oximetry 95 08/19/23 11:06 Temperature 36.7 C 08/19/23 11:06 Temperature Source Temporal Artery Scan 08/19/23 11:06 Pulse 84 08/19/23 11:06 Respiratory Rate 16 08/19/23 11:06 Respiratory Effort Normal, Non-Labored 08/19/23 11:09 Blood Pressure 146/91 H 08/19/23 11:06 Blood Pressure Position Sitting 08/19/23 11:06 Pulse Oximetry 95 08/19/23 11:06 Oxygen Delivery Method Room Air 08/19/23 11:06 Oxygen Flow Rate 0 08/19/23 11:06 Pain Level 0 08/19/23 11:06 Comment 03/16 when coughing 08/19/23 11:06 Medical Decision Making 78-year-old female diagnosed with the flu 1 month ago presents with unintentional 70 pound weight loss, night sweats, dry cough over the last month, afebrile nontoxic normoxic, no respite distress lungs clear bilaterally. Consider pneumonia versus tuberculosis versus malignancy versus malingering viral upper respiratory illness will assess basic metabolic panel CBC, QuantiFERON gold, screening chest x-ray two-view, trial of dexamethasone. 13: 16 patient was comfortably no acute distress. Evidence of right lower lobe pneumonia. Treating empirically. Will follow with primary care physician. Home care instructions and return precautions given Quality:SDOH Health Related Social Needs: No Data to Display PFSH All Active Problems (Updated 08/19/23 @ 13:16 by Juan Carlos Fleming MD) Pneumonia (Acute) Influenza A (Acute) Colon polyp, hyperplastic (Acute) Tubular adenoma (Acute) High grade dysplasia in colonic adenoma (Acute) Medical History (Updated 08/19/23 @ 13:16 by Juan Carlos Fleming MD) Tubular adenoma of colon Hypothyroidism associated with surgical procedure Surgical History thyroidectomy Colonoscopy - MAC (08/16/17) 08/2017- Tubular adenomas one with high grade dysplasia, sessile serrated 03/2018- Tubal adenomas x4 Colonoscopy - MAC (04/20/14) Family History Maternal Grandfather No problems noted. Maternal Grandmother Diabetes Social History (Updated 02/25/18 @ 10:05 by Vane Seals MD) Smoking/Tobacco Use Status: Never Smoking risk assessment performed?: Yes Alcohol Intake: current Alcohol Intake frequency: 0-2 drinks per day Alcohol type: wine Drug use: Occasionally Substance use type: marijuana Housing: house Current gender identity: female Do you feel safe at home: Yes Do you feel safe in your relationship?: Yes
[2023-08-19] MEDS: Dexamethasone 10 MG/ML VIAL PO (12:13)
[2023-08-19 12:20] LABS: Abs Immature Grans 0.05 10^3/uL (0.0-0.06); Absolute Basophil Count 0.04 10^3/uL (0.0-0.2); Absolute Eosinophil Count 0.19 10^3/uL (0.0-0.7); Absolute Lymphocyte Count 1.01 10^3/uL (1.2-3.4); Absolute Neutrophil Count 6.15 10^3/uL (1.2-6.7); Basophils % 0.5; Eosinophils % 2.4; HCT 35.4 % (36.0-46.0); HGB 11.8 g/dL (11.2-15.7); Immature Grans % 0.6; Lymphocytes % 12.7; MCH 30.9 pg (27.0-33.0); MCHC 33.3 % (32.0-36.0); MCV 93 fL (80-95); MPV 8.6 fL (8.0-11.0); Monocytes % 6.3; Neutrophils % 77.5; Platelet Count 280 10^3/uL (130-400); RBC 3.82 10^6/uL (3.93-5.22); RDW-SD 44.3 fL; WBC 7.94 10^3/uL (4.4-10.8)
[2023-08-19 12:39] LABS: ALT 24 U/L (14-59); AST 20 U/L (15-37); Albumin 3.3 g/dL (3.4-5.0); Alkaline Phosphatase 67 U/L (46-116); Anion Gap 10.5 mmol/L (3-11); BUN 12 mg/dL (7-18); Bilirubin, Total 0.5 mg/dL (0.2-1.0); CO2 28.5 mmol/L (21.0-32.0); CREATININE 0.9 mg/dL (0.55-1.02); Calcium 8.7 mg/dL (8.5-10.1); Chloride 102 mmol/L (98-107); Estimated GFR 66.26 (mL/min/1.73m2); Glucose 94 mg/dL (74-106); Sodium 141 mmol/L (136-145); Total Protein 7.3 g/dL (6.4-8.2)
[2023-08-19] MEDS: Amoxicillin 875/Clav. 125 TAB PO (13:19)
[2023-08-19] MEDS: Azithromycin 250 MG TAB 500 MG PO (13:19)
[2023-08-23 10:10] LABS: TB Interpretation Negative (Negative); TB1 Ag minus Nil 0.01 IU/ml; TB2 Ag minus Nil 0.01 IU/mL
== END 2023-08-19 13:25 | disposition home or self-care (01) ==
PROVIDERS: Emergency Provider Emergency Medicine; PCP Nurse Practitioner Family
DX: J18.9 Pneumonia, unspecified organism (principal)
CPT/HCPCS: 36415; 80053; 99283; 71046; 85025; 86480; J1100

== ENCOUNTER 2023-12-31 11:52 | Outpatient (REF) | payer MEDICARE, SELFPAY ==
[2023-12-31 18:49] LABS: Abs Immature Grans 0.02 10^3/uL (0.0-0.06); Absolute Basophil Count 0.05 10^3/uL (0.0-0.2); Absolute Eosinophil Count 0.06 10^3/uL (0.0-0.7); Absolute Lymphocyte Count 1.14 10^3/uL (1.2-3.4); Absolute Monocyte Count 0.55 10^3/uL (0.1-0.8); Basophils % 0.7 %; Eosinophils % 0.8 %; HGB 12.5 g/dL (11.2-15.7); Immature Grans % 0.3 %; Lymphocytes % 15.6 %; MCH 30.9 pg (27.0-33.0); MCHC 33.8 % (32.0-36.0); MCV 92 fL (80-95); MPV 9.8 fL (8.0-11.0); Monocytes % 7.5 %; Neutrophils % 75.1 %; Platelet Count 257 10^3/uL (130-400); RBC 4.04 10^6/uL (3.93-5.22); RDW 12.8 % (11.7-14.6); RDW-SD 42.8 fL; WBC 7.32 10^3/uL (4.4-10.8)
[2023-12-31 19:11] LABS: ALT 25 U/L (14-59); AST 16 U/L (15-37); Albumin 3.8 g/dL (3.4-5.0); Alkaline Phosphatase 55 U/L (46-116); BUN 12 mg/dL (7-18); Bilirubin, Total 0.49 mg/dL (0.2-1.0); Calcium 8.3 mg/dL (8.5-10.1); Chloride 101 mmol/L (98-107); Estimated GFR 58.39 (mL/min/1.73m2); Glucose 102 mg/dL (74-106); Potassium 3.7 mmol/L (3.5-5.1); Sodium 139 mmol/L (136-145); TSH (W/Ref FT4) 3.22 uIU/mL (0.36-3.74); Total Protein 6.6 g/dL (6.4-8.2)
[2023-12-31 19:29] LABS: Hemoglobin A1C 6.1 % (<5.7)
== END 2023-12-31 11:53 | disposition home or self-care (01) ==
LOC: NCHCN 11:52
PROVIDERS: PCP Nurse Practitioner Family; Visit Provider Family Medicine
DX: R73.03 Prediabetes (principal); R63.4 Abnormal weight loss
CPT/HCPCS: 80053; 83036; 84443; 85025

== ENCOUNTER 2024-01-07 15:02 | Outpatient (REF) | payer MEDICARE, SELFPAY ==
[2024-01-07 13:25] LABS: C Diff PCR Positive (Negative)
[2024-01-07 23:45] LABS: Campylobacter PCR Positive (Negative); Salmonella PCR Negative (Negative); Shiga Toxin PCR Negative (Negative); Shigella/Enteroinvasive Ecoli Negative (Negative)
[2024-01-12 15:10] LABS: Calprotectin 448 mcg/g
== END 2024-01-07 15:03 | disposition home or self-care (01) ==
LOC: NCHCN 15:02
PROVIDERS: PCP Nurse Practitioner Family; Visit Provider Family Medicine
DX: R19.7 Diarrhea, unspecified (principal)
CPT/HCPCS: 87329; 87493; 87505; 83993

== ENCOUNTER → 2024-02-03 09:54 | Outpatient (BNVA) | payer MEDICARE, SELFPAY | PROVIDERS: PCP Nurse Practitioner Family; Referring Provider Nurse Practitioner Family; Visit Provider Surgery | DX: Z12.11 Encounter for screening for malignant neoplasm of colon (principal) ==

== ENCOUNTER 2024-02-16 01:56 | Outpatient (CLI) | payer MEDICARE, SELFPAY ==
--- NOTE | 2024-02-16 | DI.MAMMO_ITS ---
Exam(s) MAMMO SCREENING EXAM: MAMMO SCREENING CLINICAL HISTORY: SCREENING, Z12.39 TECHNIQUE: Mammograms were interpreted according to the usual protocol including computer analysis w [employer] CAD system, tomosynthesis and C-view imaging. COMPARISON: 2014 through 2021 FINDINGS: The breasts are composed of heterogeneously dense fibroglandular densities, Breast Density category C . No suspicious masses or suspicious microcalcifications are seen. No skin thickening or abnormal axillary lymph nodes are seen. There has been no significant change from prior exams. IMPRESSION: BI-RADS Category 1, Negative mammogram. Yearly screening mammography is recommended. Breast Density Category C, heterogeneously Dense. The mammogram demonstrates the patient's breast tissue is dense. Dense breast tissue is very common a nd is not abnormal but dense breast tissue can make it harder to find cancer on a mammogram. Also, de nse breast tissue may increase breast cancer risk. This information about the result of the mammogram report was provided to the patient to raise their awareness. Use this report when you speak with the patient about their risks for breast cancer, which includes their family history. At that time, you may recommend additional screening tests (Ultrasound or MRI) as they might be useful based on their r isk. A negative radiographic report should not delay biopsy if a dominant or clinically suspicious mass is present. Up to ten percent of cancers are not identified on mammography. A negative report may reinforce clinical impression. Adenosis and dense breasts may obscure an underlying neoplasm. False positive reports average 6 to 10%.
== END 2024-02-16 02:16 ==
LOC: DI 01:56
PROVIDERS: PCP Nurse Practitioner Family; Visit Provider Family Medicine
DX: Z12.31 Encounter for screening mammogram for malignant neoplasm of breast (principal)
CPT/HCPCS: 77063; 77067

== ENCOUNTER 2024-02-18 06:54 | Day surgery (SDC) | payer MEDICARE, SELFPAY ==
--- NOTE | 2024-02-17 13:02 | COLE_ITS ---
Date of service: 02/18/24 Time of Service: 09:31 Colonoscopy Report Date of procedure: 02/18/24 Pre-op diagnosis general: tubular adenomas/C. diff January 06 Post-op diagnosis procedure note: other Surgeon: Juliet Akbar Anesthesia Type: General:No Airway Estimated blood loss (mL): 3 Pathology: other Complications: None Disposition: same day Prep: Miralax/Dulcolax Retraction Time: 23 Procedure Description: After informed consent was obtained, explaining risks of the procedure, including but not limits to: bleeding, infections, complications of anesthesia, perforations (which may require antibiotics and /or surgery and stay in the hospital), and abdominal pain/cramping. The patient was taken to the procedure room and placed in a left decubitous position. Monitors were applied and a time out was done. The patients name, date of , procedure, allergies to medications and metal in their body was reviewed. The patient was then sedated. Once sedated and comfortable a rectal exam was done. External exam was normal. Internal exam revealed a normal sphincter tone and no palpable masses. The previously lubricated Olympus scope was then introduced (see RN notes for scope number) and retrofelexed. No internal hemorrhoids were identified. The scope was then advanced to the cecum without difficulty. The TI and appendiceal orifice were identified. The scope was then slowly retracted over 23 minutes back into the rectum. Polyps: A flat, .5cm polyps were found at cecumx2, 70/60cm. These was removed with a cold biting forceps. All of the specimen was retrieved. This will be sent to pathology. There is no bleeding noted from the polypectomy site. Diverticula: pt had a moderate amount of small mouthed diverticula colon. There were no signs of active bleeding or infection. The mucosa is pink and healthy w/ a normal vascular pattern. The scope was removed, and the patient was woken up and taken back to Same day surgery in stable condition. The patient tolerated the procedure well and there were no immediate complications. Follow up: The patient should follow up in Path pending, years, unless they develop changes in bowel habits or other new gastrointestinal complaints. [place] Bowel Prep [place] Bowel Prep Right Colon: 3 Left Colon: 3 Transverse Colon: 3 Total Score: 9
[2024-02-18 07:15] VITALS: BP 131/66; PULSE 70; RESP 16; TEMP 36; O2SAT 99
[2024-02-18] MEDS: Lactated Ringers 1,000 ML 80 ML IV (07:28)
--- NOTE | 2024-02-18 08:39 | W.ANESPRE ---
General Info Date of Service Date Performed: 02/18/24 Height: 5 ft 8 in Weight: 62.1 kg Body Mass Index (BMI): 20.8 Surgical Procedure: Operation Date: 02/18/24 08:35 Proposed Procedure Side Surgeon andreia Akbar, DO Meds Allergies and Home Medications Allergies Allergy/AdvReac Type Severity Reaction Status Date / Time No Known Allergies Allergy Verified 02/18/24 07:13 Home Medication ?Medication ?Instructions ?Recorded acyclovir 800 mg tablet 800 mg PO PRN 07/12/17 albuterol sulfate 90 mcg/actuation 2 puff inhalation Q6H PRN #6.7 07/31/23 aerosol inhaler (ProAir HFA) grams Saccharomyces boulardii 250 mg 250 mg PO BID 01/05/24 capsule (Daily Probiotic (S. boulardii)) ascorbic acid (vitamin C) 500 mg 500 mg PO DAILY 01/05/24 capsule cholecalciferol (vitamin D3) 10 10 mcg PO DAILY 01/05/24 mcg (400 unit) capsule levothyroxine 88 mcg capsule 88 mcg PO DAILY 01/05/24 [id number] 1 tab PO DAILY 01/05/24 18 mg-10 mg-45 mg-5 mg-250 mg tablet (B Complex w-Vit C) bisacodyl 5 mg tablet,delayed 5 mg PO ONCE colonscopy bowel prep 02/03/24 release (Dulcolax (bisacodyl)) #4 tabs polyethylene glycol 3350 17 238 g PO ONCE colonoscopy prep 02/03/24 gram/dose oral powder #238 grams zinc acetate 50 mg (zinc) capsule 50 mg PO DAILY PRN 02/03/24 (Galzin) Current Visit Medications: Current Medications Generic Name Dose Route Start Last Admin Trade Name Freq PRN Reason Stop Dose Admin Hyoscyamine Sulfate 0.125 mg 02/18/24 10:52 Hyoscyamine 0.125 Mg Sl/Oral/Chew SL 03/19/24 10:51 DIRECTED PRN Ringer's Solution 1,000 mls @ 80 mls/hr 02/18/24 06:00 02/18/24 07:28 IV 02/18/24 23:59 80 mls/hr INFUSION JOE Administration IV Miscellaneous Supplies 1 each 02/18/24 06:00 Iv Access IV 02/18/24 23:59 DIRECTED JOE Ondansetron HCl 4 mg 02/18/24 10:52 Ondansetron 4 Mg/2 Ml Vial IVP 03/19/24 10:51 Q4H PRN PRN Nausea / Vomiting Sodium Chloride 0 ml 02/18/24 06:00 Normal Saline Flush 10 Ml Syr IV 02/18/24 23:59 PRN PRN Sodium Chloride 0 ml 02/18/24 06:00 Normal Saline 10 Ml Vial IJ 02/18/24 23:59 DIRECTED PRN Sterile Water 0 ml 02/18/24 06:00 Water,Injection,Sterile 10 Ml Vial IJ 02/18/24 23:59 DIRECTED PRN PFSH Active Problems Active Problems: Problem Status Onset Code Renal insufficiency Chronic ~02/03/24 N28.9 Colon polyp, hyperplastic Acute K63.5 Tubular adenoma Acute D36.9 High grade dysplasia in colonic adenoma Acute D12.6 Medical History Medical History Abnormal weight loss Osteoarthritis, knee Herpesviral infection Tubular adenoma of colon Hypothyroidism associated with surgical procedure Surgical History Surgical History thyroidectomy Colonoscopy - [facility] (08/16/17) 08/2017- Tubular adenomas one with high grade dysplasia, sessile serrated 03/2018- Tubal adenomas x4 Colonoscopy - MAC (04/20/14) Tobacco Smoking/Tobacco Use Status: Never Alcohol Alcohol Intake: current Alcohol intake frequency: 0-2 drinks per day Alcohol type: wine Substance Use Substance use: Occasionally Substance use type: marijuana Vital Signs and Lab Results Vital Signs Most Recent Vital Signs in EMR: Most Recent Vital Signs Temp Pulse Resp BP Pulse Ox 36 C L 70 16 131/66 99 02/18/24 07:15 02/18/24 07:15 02/18/24 07:15 02/18/24 07:15 02/18/24 07:15 Lab Results Blood Type / Crossmatch: No Data to Display Complete Blood Count: No Data to Display Complete Metabolic Panel: No Data to Display Liver Function Panel: No Data to Display Coagulation Panel: No Data to Display Cardiac Panel: No Data to Display Arterial Blood Gas: No Data to Display Venous Blood Gas: No Data to Display Pancreas Panel: No Data to Display Thyroid Panel: No Data to Display Infectious Disease: No Data to Display Blood Cultures: No Data to Display Toxicology Panel: No Data to Display Anesthesia Assessment and Plan Anesthesia History Personal History: No History of Anesthesia Complications Family History: No Family History of Anesthesia Complications Exercise Tolerance Exercise Tolerance: Metabolic Equivalents>4 Pertinent Negatives Pertinent Negatives: No Symptoms of GERD and No Major Cardiovascular Symptoms or Complaints Cardiac & Pulmonary Exam Cardiac Exam: Normal S1/S2 Heart Sounds Pulmonary Exam: Clear Bilateral Breath Sounds Implantable Cardiac Device Does patient have a Pacemaker or an ICD?: No Airway Exam Known Difficult Airway: No Mallampati Class: 1 Mouth Opening: Normal (> 3cm) Thyromental Distance: Greater than 3 cm Neck Range of Motion: Full ROM Neck Circumference: Normal Teeth Condition: Normal Dentition ASA Classification ASA Score: ASA 2 Emergency Case?: No NPO Status NPO Status: NPO Clears >2 hours, Solids >8 hours Anesthesia Plan Resuscitation Status: Full Code Anesthesia Technique: General Anesthesia Airway Planned: Natural Airway Monitors Used: Standard Monitors
[2024-02-18 08:40] VITALS: BMI 20.8
--- NOTE | 2024-02-18 08:59 | BOWEL_PTH ---
PATIENT: Jessie Castillo LOC: [facility] U#:[id number] AGE/SX: 78/F ROOM: RE02/18/[address]: Juliet Akbar : 1945 BED: DIS: 02/18/2024 SPEC #: [id number] RECD: 02/18/24 12:04 STATUS: ROBYN RE #: [id number] RASHEED: 02/18/24 08:[address]: Juliet Akbar DEPT: Surgical Specimen RECD BY: Yari Da Silva ENTERED: 02/18/24 12:07 SP TYPE: Bowel OTHR DR: JOSEFINA THOMAS, [employer] Tissues: 1 - BIOPSY BOWEL 2 - BIOPSY BOWEL 3 - BIOPSY BOWEL 4 - BIOPSY BOWEL 5 - BIOPSY BOWEL 6 - BIOPSY BOWEL 7 - BIOPSY BOWEL Procedures: GROSS AND MICRO LEVEL 4 Comments: [id number]
[2024-02-18 09:30] VITALS: BP 98/62; PULSE 70; RESP 16; TEMP 36.2; O2SAT 98
--- NOTE | 2024-02-18 09:40 | PDOC.DSDIS_ITS ---
Date of service: 02/18/24 Time of Service: 09:45 Discharge Plan Disposition Patient Disposition: Home Condition: Good Discharge Details Reason For Visit: Colonoscopy Attending Provider: Juliet Akbar Primary Care Provider: JOSEFINA THOMAS Home Meds and New Rx's Prescriptions: Continued acyclovir 800 MG tablet 800 mg PO PRN B Complex w-Vit C [id number] mg tablet 1 tab PO DAILY levothyroxine 88 mcg capsule 88 mcg PO DAILY Saccharomyces boulardii [Daily Probiotic (S. boulardii)] 250 mg capsule 250 mg PO BID cholecalciferol (vitamin D3) 10 mcg (400 unit) capsule 10 mcg PO DAILY Galzin 50 mg (zinc) capsule 50 mg PO DAILY PRN albuterol sulfate [ProAir HFA] 90 mcg/actuation HFA aerosol inhaler 2 puff inhalation Q6H PRNQty: 6.7 0RF Discontinued polyethylene glycol 3350 17 gram/dose powder 238 g PO ONCE Qty: 238 0RF Rx Instructions: take per colonoscopy instructions bisacodyl [Dulcolax (bisacodyl)] 5 mg tablet,delayed release (DR/EC) 5 mg PO ONCE Qty: 4 0RF Rx Instructions: take per colonoscopy instructions ascorbic acid (vitamin C) 500 mg capsule 500 mg PO DAILY Discharge Instructions Additional Instructions: DSU Colonoscopy Post- Op Instructions Instructions for Everyone who is given Anesthesia: For your safety, please do the following for the next twenty-four (24) hours: *Do Not operate a motor vehicle (car, truck, motorcycle, etc.) *Do Not drink alcoholic beverages or use any recreational drugs for the first 24 hours or while taking pain medications. The medications in your body may have a reaction that can be dangerous. *Do Not make any important decisions or sign any important papers. Findings: Polyps and diverticula Follow up: Make sure you are moving your bowels on a regular basis and not straining to go to the bathroom. If you find you have problems with constipation or straining on a regular basis, then is recommending the start of fiber product daily. -My office will send you a letter in 2 to 3 weeks time with the results of the polyps and when/if we want you to repeat another colonoscopy 1. No lifting over 20 pounds or strenuous activity for the first 24 hours after your procedure. After 24 hours there are no restrictions on your activity but you may feel fatigued for a few days. 2. After you arrive home you may have a light meal and return to your normal diet as you can tolerate it without feeling sick to your stomach. 3. You may have a bloated, gaseous feeling in your belly (abdomen) after a colonoscopy. Passing gas and belching will help. Walking or lying down on your left side with your knees flexed may relieve the discomfort. Call the office at [phone] (Office) or [phone] (Hospital) right away if you notice any of the following: a.Vomiting of blood or ?coffee ground stools?. b.Rectal bleeding 1Tbsp, blood clots or continuous bleeding. c.Severe belly (abdominal) pain. d.A hard distended belly (abdomen) and an inability to pass gas. 4. Please don?t expect to have a normal BM (bowel movement) for 2-3 days after your procedure. 5. If there are questions regarding the findings of your procedure, please contact your doctor 6. If you are unable to contact your doctor with a problem, contact the hospital at [phone]. 7. Continue all your regular medications unless directed otherwise. I understand the above instructions and have no questions. Signature of Patient or Adult Escort Name of Responsible Adult Escort Signature of Nurse Date/Time Activity:: See above Diet:: See above Discharge Orders Discharge Orders: Discharge Order (Routine); Ordered 02/18/24 Ordered By: Juliet Akbar DS: Diagnosis Discharge Diagnosis (1) Pancolonic diverticulosis: Status: Acute (2) High grade dysplasia in colonic adenoma: Status: Acute (3) Tubular adenoma: Status: Acute Asessment and Plan: The patient is seen and examined after their colonoscopy.? The patient has been able to pass gas.? They are not having abdominal pain.? They have been able to tolerate liquids and a snack.? They do not have any nausea or vomiting.? They are not having any chest pain or shortness of breath.??? They are not having any rectal bleeding. Their vital signs have been stable-see nursing notes. We discussed findings during their colonoscopy, and any biopsies that were done/polyps that were removed. The patient will be sent a letter with any biopsy results, and when to repeat the colonoscopy.-see discharge instructions. Patient was given explicit instructions to follow-up regarding colonoscopy-refer to discharge instructions.? We reviewed resumption of medications. Patient verbalized understanding and discharged in stable and satisfactory condition- See nursing notes. (4) Hypothyroidism associated with surgical procedure:
--- NOTE | 2024-02-18 09:56 | W.ANESPOSTOP ---
Postoperative Evaluation Date, Time and Location Date Performed: 02/18/24 Time Performed: 09:45 Patient Location: Day Surgery Unit Vital Signs Most Recent Imported Vital Signs: Most Recent Vital Signs Temp Pulse Resp BP Pulse Ox 36.2 C L 70 16 98/62 L 98 02/18/24 09:30 02/18/24 09:30 02/18/24 09:30 02/18/24 09:30 02/18/24 09:30 Pain Score Most Recent Pain Score: Most Recent Pain Score Pain Level 0 02/18/24 09:30 Assessment Mental Status: Awake (Alert & Oriented to Patient Baseline) Airway and Respiratory Function: Patent airway with normal (patient baseline) respiratory exam Cardiovascular Function: Hemodynamically Stable Hydration Status: Adequately Hydrated Nausea & Vomiting: No Nausea or Vomiting Pain: Pt. Denies Any Pain Peripheral Nerve Block: Patient did not receive a nerve block
[2024-02-18 10:07] VITALS: BP 117/61; PULSE 70; RESP 18; TEMP 36.4; O2SAT 99
== END 2024-02-18 10:20 | disposition home or self-care (01) ==
PROVIDERS: PCP Nurse Practitioner Family; Visit Provider Surgery
PROC: 0DJD8ZZ Inspection of Lower Intestinal Tract, Via Natural or Artificial Opening Endoscopic (ICD-10-PCS; CPT 45378; principal; 2024-02-18 08:30)
DX: K57.30 Diverticulosis of large intestine without perforation or abscess without bleeding (principal); Z12.11 Encounter for screening for malignant neoplasm of colon; D12.4 Benign neoplasm of descending colon
CPT/HCPCS: 45380; 88305; J2704

== ENCOUNTER 2024-08-15 10:47 | Outpatient (REF) | payer MEDICARE, SELFPAY ==
[2024-08-15 15:37] LABS: Hemoglobin A1C 5.9 % (<5.7)
[2024-08-15 15:44] LABS: ALT 31 U/L (14-59); AST 27 U/L (15-37); Albumin 3.9 g/dL (3.4-5.0); Alkaline Phosphatase 57 U/L (46-116); Anion Gap 6.9 mmol/L (3-11); BUN 19 mg/dL (7-18); Bilirubin, Total 0.4 mg/dL (0.2-1.0); CO2 29.1 mmol/L (21.0-32.0); Calcium 8.4 mg/dL (8.5-10.1); Chloride 106 mmol/L (98-107); Estimated GFR 58.02 (mL/min/1.73m2); Glucose 84 mg/dL (74-106); Potassium 4.4 mmol/L (3.5-5.1); Sodium 142 mmol/L (136-145); TSH (W/Ref FT4) 1.54 uIU/mL (0.36-3.74); Total Protein 6.4 g/dL (6.4-8.2)
== END 2024-08-15 10:48 | disposition home or self-care (01) ==
LOC: NCHCN 10:47
PROVIDERS: PCP Nurse Practitioner Family; Visit Provider Nurse Practitioner Family
DX: R73.03 Prediabetes (principal); E03.9 Hypothyroidism, unspecified
CPT/HCPCS: 80053; 83036; 84443

== ENCOUNTER 2024-09-25 01:46 | Outpatient (CLI) | payer MEDICARE, SELFPAY ==
--- NOTE | 2024-09-25 10:10 | DI.RAD_ITS ---
Exam(s) XR KNEE RT 3V AP,LAT,HEIDE EXAM: XR KNEE RT 3V AP,LAT,HEIDE CLINICAL HISTORY: LOOSE BODY RT KNEE JOIN,M23.41,PRIMARY OA,M17.11,PALPABLE LUMP ABOVE. TECHNIQUE: 2D digital imaging was performed of the right knee. Three views obtained. AP, lateral an d PA tunnel views were obtained. COMPARISON: CR XR CHEST 2V PA LATERAL from 08/19/2023 FINDINGS: BONES: No acute fracture is present. No bony destructive lesion is seen. JOINTS: There is loss of the patellofemoral joint space. There osteophytes seen at the patellofemora l joint in the lateral femoral tibial joint. There is a small joint effusion. There is a round osse ous density in the suprapatellar joint space. SOFT TISSUE: Normal. IMPRESSION: Marked degenerative changes particularly the patellofemoral joint. DATA REPOSITORY: RADIATION DOSE DELIVERED:
== END 2024-09-25 02:06 ==
LOC: DI 01:46
PROVIDERS: PCP Nurse Practitioner Family; Visit Provider Nurse Practitioner Family
DX: M23.41 Loose body in knee, right knee (principal); M17.11 Unilateral primary osteoarthritis, right knee
CPT/HCPCS: 73562

== ENCOUNTER → 2024-11-07 09:53 | Outpatient (BNVA) | payer MEDICARE, SELFPAY | PROVIDERS: PCP Nurse Practitioner Family; Referring Provider Nurse Practitioner Family; Visit Provider Student in an Organized Health Care Education/Training Program | DX: M23.41 Loose body in knee, right knee (principal); M17.11 Unilateral primary osteoarthritis, right knee; W22.03XA Walked into furniture, initial encounter | CPT/HCPCS: 99213 ==

== ENCOUNTER 2024-11-29 00:27 | Outpatient (CLI) | payer MEDICARE, SELFPAY ==
--- NOTE | 2024-11-29 08:15 | DI.MRI_ITS ---
Exam(s) MR LOWER JOINT RT WO EXAM: MR LOWER JOINT RT WO CLINICAL HISTORY: R KNEE PAIN, ? FOREIGN BODY,loose body rt knee, arthritis of rt knee. TECHNIQUE: Multiplanar multisequence MRI was performed. COMPARISON: CR XR KNEE RT 3V AP,LAT,HEIDE from 09/25/2024 FINDINGS: BONES: There is no fracture or contusion pattern. JOINTS: There is loss of the articular cartilage overlying the patella. There is marked narrowing of the patellofemoral joint space laterally with bone on bone. Subchondral edema is seen in the patella and the adjacent femur. There is a small amount of fluid in the joint space. There are 2 osseous density seen in the dependent portion of the lateral joint space consistent with loose bodies. The larger measures 1.3 cm. There is also thinning of the articular cartilage in both the medial lateral femoral tibial joint. TENDONS: Extensor mechanism: Unremarkable. Medial retinaculum: Unremarkable. Lateral retinaculum: Unremarkable. Popliteus: Unremarkable. MUSCLES: Unremarkable. MENISCI: There is a tear of the body and posterior horn of the medial meniscus. The lateral meniscus is unremarkable. SOFT TISSUES: Unremarkable. LIGAMENTS: Anterior Cruciate: Unremarkable. Posterior Cruciate: Unremarkable. Medial Collateral:Unremarkable. Lateral Collateral: Unremarkable. OTHER: IMPRESSION: 1. There is a tear of the body and posterior horn of the medial meniscus. 2. There is no evidence of a ligament tear. 3. Two loose bodies seen within the joint space. The largest measures 1.3 cm. 4. Marked arthrosis involving all 3 joint compartments, particularly the patellofemoral joint. DATA REPOSITORY:
== END 2024-11-29 00:47 ==
PROVIDERS: PCP Nurse Practitioner Family; Visit Provider Student in an Organized Health Care Education/Training Program
DX: M23.41 Loose body in knee, right knee (principal); M17.11 Unilateral primary osteoarthritis, right knee
CPT/HCPCS: 73721

== ENCOUNTER → 2024-12-05 09:05 | Outpatient (BNVA) | payer MEDICARE, SELFPAY | PROVIDERS: PCP Nurse Practitioner Family; Referring Provider Nurse Practitioner Family; Visit Provider Student in an Organized Health Care Education/Training Program | DX: M23.41 Loose body in knee, right knee (principal); M17.11 Unilateral primary osteoarthritis, right knee | CPT/HCPCS: 99214 ==

== ENCOUNTER 2024-12-07 07:52 | Day surgery (SDC) | payer MEDICARE, SELFPAY ==
[2024-12-07] VITALS (18 sets, daily range): BP systolic 97–115; BP diastolic 49–80; PULSE 60–72; RESP 11–18; TEMP 36.4–36.6; O2SAT 96–100; BMI 20.9
--- NOTE | 2024-12-07 06:44 | W.PM.DSUDISC ---
Date of service: 12/07/24 Discharge Plan Disposition Patient Disposition: Home Condition: Stable Discharge Details Attending Provider: Arnie Thakkar Primary Care Provider: JOSEFINA THOMAS Home Meds and New Rx's Prescriptions: New aspirin 81 mg tablet,delayed release (DR/EC) 81 mg PO DAILY 14 Days Qty: 14 0RF naproxen 250 mg tablet 250 mg PO BID PRN (Reason: Moderate pain) Qty: 25 0RF tramadol 50 mg tablet 50 mg PO TID PRNQty: 10 0RF Continued multivitamin Tablet 1 tab PO DAILY acyclovir 800 MG tablet 800 mg PO PRN levothyroxine 88 mcg capsule 88 mcg PO DAILY gabapentin 100 mg capsule 100 mg PO QHS Discharge Instructions Additional Instructions: Surgery: Right knee arthroscopy with loose body removal and limited partial medial & lateral meniscectomy & chondroplasty in the setting of significant knee arthritis 12/07/2024 Activity: Weightbearing as tolerated. Advance range of motion as comfort allows. No knee brace or crutches needed as soon as comfortable. Recommend avoiding strenuous activities for about 1 month. A physical therapy prescription will be provided at follow-up if needed. Prescriptions: Aspirin 81 mg take 1 daily to prevent a blood clot for 14 days Naproxen 250 mg take 1 every 12 hours with a meal as needed for moderate pain Tramadol 50 mg take 1 every 8 hours as needed for severe pain You may use [id number] Tylenol (acetaminophen) as needed for mild pain. These pain medications may be taken all at once or in different combinations as needed. Also, recommend Colace (docusate) as a stool softener as surgery and pain medicine cause constipation. You may try [id number] diphenhydramine (Benadryl) 25-50 mg nightly as a sleep aid Dressings: Leave dressing in place for 3 days. May then remove and leave open to air or cover incisions with Band-Aids. Leave the sticky Steri-Strips in place until they fall off or remove them after you shower. May shower after 5 days. Follow-up: 10-[address] Thakkar You may take off the leg compression stockings this evening at home. You may also leave them on a few days longer if you have a history of leg swelling or edema. Let us know right away if you develop any redness, drainage, fevers, chest pain, or trouble breathing. Do not drink alcohol or drive for at least 24 hours after anesthesia. Please call the office during business hours with any questions or concerns. Discharge Orders Discharge Orders: Discharge Order (Routine); Ordered 12/07/24 Ordered By: Maurice Garcia DS: Diagnosis Discharge Diagnosis (1) Loose body of right knee: Status: Acute (2) Degeneration of meniscus of right knee: Status: Acute (3) Arthritis of knee, right: Status: Acute
--- NOTE | 2024-12-07 07:17 | W.PM.OP ---
Operative Note Operative Note PRE-OP DIAGNOSIS: Right knee 1. Degenerative medial and lateral meniscus tears 2. Significant arthrosis, especially patellofemoral 3. Symptomatic large loose osteochondral body POST-OP DIAGNOSIS: same PROCEDURE: Right knee 1. Partial medial & lateral meniscectomy, CPT #06479 2. Chondroplasty, CPT #48693: Medial femoral condyle and lateral patellar facet 3. Loose body removal, CPT #80068: Large osteochondral fragment - about 15 x 25 x 5 mm irregularly ovoid - from the lateral gutter, which was too large to be removed through the arthroscopic portal. The fragment was divided in 2 pieces and removed through a mini?opening created by enlarging the anterolateral portal SURGEON: Arnie Thakkar CUSTOMER AGENT: None None Refer to Anesthesia Record PATHOLOGY: none sent TOURNIQUET TIME: 0 Patient was transported to: PACU Patient's condition: stable Indications: Please see complete medical record for details. Findings: Exam under anesthesia: Good range of motion, stable, moderate lateral patellar tracking and bony mechanical engagement. Arthroscopic findings: As expected, severe arthrosis globally with the worst essentially bone?on-bone eburnation and near?complete cartilage loss in the patellofemoral compartment. Large osteochondral loose body in the lateral gutter. Relatively mild global synovitis. Moderately significant medial and lateral chondromalacia with medial and lateral grant labral degenerative tearing fraying. Intact ACL. Likely previously debrided anterior fat pad. Procedure Description: In the operating room, general anesthesia was induced. The patient was positioned supine on the operating room table. All bony prominences were well-padded. Preoperative antibiotics were administered. The knee was prepped and draped in the usual sterile fashion. The correct patient, procedure, and side of the procedure were all verified prior to incision. Exam under anesthesia was performed. 20 cc of 0.25% bupivacaine containing epinephrine was infiltrated about the existing anteromedial and anterolateral knee arthroscopy portals. The portals were opened and a complete diagnostic arthroscopy was performed taking care to avoid aggravating or injuring the significant arthrosis with relevant findings detailed above. The loose large osteochondral body was localized in the lateral gutter. The arthroscope was changed to the anterior medial portal as the only way to access the body was through the anterior lateral portal working around the bony osteophytes to access it in this area with a pituitary rongeur. The fragment was too large to really work between the lateral femoral condyle and patellar engaging osteophytes and was also far too large to remove through the existing anterolateral portal. The fragment was then secured in a Sue after bringing it as close as possible between the arthrosis and the anterolateral portal to avoid losing it, a knife was used over the Sue to enlarge the anterior lateral portal and then spreading used to create a mini?arthrotomy taking care to avoid injuring the bony osteophytes. The loose body was cracked in 2 pieces and each then removed in entirety from the knee and placed into a specimen cup for the patient. There was some synovitis in the lateral gutter but no other loose bodies. The mechanical shaver was then lightly debrided using significant caution some synovitis in both the medial and lateral meniscus of clear obvious edge fraying tearing and to prevent additional loose bodies from unstable pieces of meniscal tissue. There was also an unstable area of cartilage on the medial femoral condyle and cartilage and bone from the far lateral patellar facet, which both seemed relatively unstable and they were debrided with the mechanical shaver as well and to a stable margin attempted minimize additional loose body formation. The significant arthrosis was not formally addressed with arthroscopy given the majority of patient's symptoms from the loose body and no subjective complaints about the chronic knee arthrosis as well as the limited utility in arthroscopy and treating this pathology Under direct arthroscopic visualization an 18-gauge needle was passed into the knee from superolateral into the suprapatellar pouch. The knee was copiously irrigated with arthroscopic fluid until there was a clear effluent before being drained of all fluid. The anteromedial and anterolateral portals were closed in 3-0 Monocryl in a buried interrupted fashion. 10 cc of 0.25% bupivacaine with epinephrine containing 4 mg of morphine was infiltrated into the knee through the previously placed needle. Mastisol, Steri-Strips, and 4 x 4 gauze were applied over the incisions. The knee was then wrapped gently with an SRUTHI comressive bandage. The patient awoke from anesthesia without complication and was transferred to the recovery room in a stable condition. Date of Procedure: 12/07/24
--- NOTE | 2024-12-07 08:37 | W.ANESPRE ---
General Info Date of Service Date Performed: 12/07/24 Height: 5 ft 8.5 in Weight: 63.3 kg Body Mass Index (BMI): 20.9 Surgical Procedure: Operation Date: 12/07/24 09:10 Proposed Procedure Side Surgeon p Knee Arthroscopy w/Loose Body Removal, any meniscal surgery Right Arnie Thakkar MD Meds Allergies and Home Medications Allergies Allergy/AdvReac Type Severity Reaction Status Date / Time No Known Allergies Allergy Verified 12/07/24 08:14 Home Medication ?Medication ?Instructions ?Recorded acyclovir 800 mg tablet 800 mg PO PRN 07/12/17 levothyroxine 88 mcg capsule 88 mcg PO DAILY 01/05/24 gabapentin 100 mg capsule 100 mg PO QHS 11/02/24 multivitamin 1 tab PO DAILY 11/07/24 Current Visit Medications: Current Medications Generic Name Dose Route Start Last Admin Trade Name Freq PRN Reason Stop Dose Admin Ringer's Solution 1,000 mls @ 30 mls/hr 12/07/24 06:00 IV 12/07/24 23:59 INFUSION JOE Cefazolin Sodium/Dextrose 2 gm in 50 mls @ 100 mls/hr 12/07/24 06:00 Ancef Duplex IVPB 12/07/24 23:59 PREOP JOE Tranexamic Acid/Sodium Chloride 1,000 mg in 100 mls @ 600 mls/hr 12/07/24 06:00 IVPB 12/07/24 23:59 PREOP JOE IV Miscellaneous Supplies 1 each 12/07/24 06:00 Iv Access IV 12/07/24 23:59 DIRECTED JOE Oxycodone HCl 5 - 10 mg 12/07/24 06:46 Oxycodone 5 Mg Tab PO 01/06/25 06:45 Q3H PRN PRN Pain Sodium Chloride 0 ml 12/07/24 06:00 Normal Saline Flush 10 Ml Syr IV 12/07/24 23:59 PRN PRN Sodium Chloride 0 ml 12/07/24 06:00 Normal Saline 10 Ml Vial IJ 12/07/24 23:59 DIRECTED PRN Sterile Water 0 ml 12/07/24 06:00 Water,Injection,Sterile 10 Ml Vial IJ 12/07/24 23:59 DIRECTED PRN PFSH Active Problems Active Problems: Problem Status Onset Code Arthritis of knee, right Acute M17.11 Loose body of right knee Acute M23.41 Pancolonic diverticulosis Acute K57.30 Renal insufficiency Chronic ~02/03/24 N28.9 Colon polyp, hyperplastic Acute K63.5 Tubular adenoma Acute D36.9 High grade dysplasia in colonic adenoma Acute D12.6 Medical History Medical History (Updated 12/07/24 @ 08:16 by Mylene Winslow) Toe fracture, left Abnormal weight loss Osteoarthritis, knee Herpesviral infection Tubular adenoma of colon Hypothyroidism associated with surgical procedure Surgical History Surgical History (Updated 12/07/24 @ 08:16 by Mylene Winslow) S/P right knee arthroscopy 2016 H/O: hysterectomy History of arthroscopy of right knee thyroidectomy Colonoscopy - [facility] (08/16/17) 08/2017- Tubular adenomas one with high grade dysplasia, sessile serrated 03/2018- Tubal adenomas x4 Colonoscopy - [facility] (02/2024) Tobacco Smoking/Tobacco Use Status: Never Alcohol Alcohol Intake: current Alcohol intake frequency: a few times a month Alcohol type: wine Substance Use Substance use: Daily Substance use type: marijuana Vital Signs and Lab Results Vital Signs Most Recent Vital Signs in EMR: Most Recent Vital Signs Temp Pulse Resp BP Pulse Ox 36.6 C 62 16 114/80 99 12/07/24 08:16 12/07/24 08:16 12/07/24 08:16 12/07/24 08:16 12/07/24 08:16 Anesthesia Assessment and Plan Anesthesia History Personal History: No History of Anesthesia Complications Family History: No Family History of Anesthesia Complications Exercise Tolerance Exercise Tolerance: Metabolic Equivalents>4 Pertinent Negatives Pertinent Negatives: No Symptoms of GERD Cardiac & Pulmonary Exam Cardiac Exam: Normal S1/S2 Heart Sounds Pulmonary Exam: Clear Bilateral Breath Sounds Implantable Cardiac Device Does patient have a Pacemaker or an ICD?: No Airway Exam Known Difficult Airway: No Mallampati Class: 1 Mouth Opening: Normal (> 3cm) Thyromental Distance: Greater than 3 cm Neck Range of Motion: Full ROM Neck Circumference: Normal Teeth Condition: Normal Dentition ASA Classification ASA Score: ASA 2 Emergency Case?: No NPO Status NPO Status: NPO Clears >2 hours, Solids >8 hours Anesthesia Plan Resuscitation Status: Full Code Anesthesia Technique: General Anesthesia Airway Planned: LMA Monitors Used: Standard Monitors and SedLine
[2024-12-07] MEDS: Lactated Ringers 1,000 ML 30 ML IV (08:50)
[2024-12-07] MEDS: ceFAZolin 2 GM/50 ML BAG IVPB (09:13)
[2024-12-07] MEDS: TRANEXAMIC ACID/SOD. CHL. 1,000 MG/100 ML BAG 600 MG IVPB (09:25)
[2024-12-07] MEDS: Bupivacaine 0.25% Pres-Free W/EPI 30 ML VIAL (09:40)
[2024-12-07] MEDS: MORPHine 4 MG/ML SYR (09:49)
[2024-12-07] MEDS: EPINEPHrine 10 MG/10 ML ML (09:49)
--- NOTE | 2024-12-07 11:12 | W.ANESPOSTOP ---
Postoperative Evaluation Date, Time and Location Date Performed: 12/07/24 Time Performed: 11:12 Patient Location: Day Surgery Unit Vital Signs Most Recent Imported Vital Signs: Most Recent Vital Signs Temp Pulse Resp BP Pulse Ox 36.5 C 60 16 114/72 96 12/07/24 10:40 12/07/24 10:55 12/07/24 10:55 12/07/24 10:55 12/07/24 10:55 Pain Score Most Recent Pain Score: Most Recent Pain Score Pain Level 5 12/07/24 10:55 Assessment Mental Status: Awake (Alert & Oriented to Patient Baseline) Airway and Respiratory Function: Patent airway with normal (patient baseline) respiratory exam Cardiovascular Function: Hemodynamically Stable Hydration Status: Adequately Hydrated Nausea & Vomiting: No Nausea or Vomiting Pain: Pain is tolerable per patient Peripheral Nerve Block: Patient did not receive a nerve block
== END 2024-12-07 12:15 | disposition home or self-care (01) ==
LOC: SUR 07:52
PROVIDERS: PCP Nurse Practitioner Family; Visit Provider Student in an Organized Health Care Education/Training Program
PROC: (CPT 29870; principal; 2024-12-07 09:00)
DX: M23.41 Loose body in knee, right knee (principal); M23.331 Other meniscus derangements, other medial meniscus, right knee; M23.361 Other meniscus derangements, other lateral meniscus, right knee; M17.11 Unilateral primary osteoarthritis, right knee
CPT/HCPCS: 29880; J0690; J1100; J2003; J2270; J2371; J2405; J2704; J3010

== ENCOUNTER → 2024-12-20 10:50 | Outpatient (BNVA) | payer MEDICARE, SELFPAY | PROVIDERS: PCP Nurse Practitioner Family; Referring Provider Nurse Practitioner Family; Visit Provider Student in an Organized Health Care Education/Training Program | DX: Z47.89 Encounter for other orthopedic aftercare (principal); M23.41 Loose body in knee, right knee; M17.11 Unilateral primary osteoarthritis, right knee | CPT/HCPCS: 99024 ==

== ENCOUNTER 2025-02-20 15:11 | Outpatient (REF) | payer MEDICARE, SELFPAY ==
[2025-02-20 20:42] LABS: ALT 38 U/L (14-59); AST 37 U/L (15-37); Albumin 4.0 g/dL (3.4-5.0); Alkaline Phosphatase 54 U/L (46-116); Anion Gap 8.4 mmol/L (3-11); BUN 21 mg/dL (7-18); Bilirubin, Total 0.5 mg/dL (0.2-1.0); CO2 30.6 mmol/L (21.0-32.0); Calcium 9.2 mg/dL (8.5-10.1); Calculated LDL 66 mg/dL (<100); Chloride 102 mmol/L (98-107); Cholesterol 167 mg/dL (<200); Estimated GFR 65.84 (mL/min/1.73m2); Glucose 95 mg/dL (74-106); HDL Cholesterol 92 mg/dL (>or=50); Potassium 4.1 mmol/L (3.5-5.1); Sodium 141 mmol/L (136-145); TSH (W/Ref FT4) 1.12 uIU/mL (0.36-3.74); Total Protein 6.5 g/dL (6.4-8.2); Triglyceride 46 mg/dL (<150)
[2025-02-21 14:47] LABS: Hemoglobin A1C 5.9 % (<5.7)
== END 2025-02-20 15:12 | disposition home or self-care (01) ==
LOC: NCHCN 15:11
PROVIDERS: PCP Nurse Practitioner Family; Visit Provider Nurse Practitioner Family
DX: E03.9 Hypothyroidism, unspecified (principal); R73.03 Prediabetes
CPT/HCPCS: 80053; 80061; 83036; 84443

== ENCOUNTER 2025-03-28 01:12 | Outpatient (CLI) | payer MEDICARE, SELFPAY ==
--- NOTE | 2025-03-28 | DI.DEXA_ITS ---
Exam(s) XR DEXA BONE DENSITY W/WO DIMITRI EXAM: XR DEXA BONE DENSITY W/WO DIMITRI CLINICAL HISTORY: SCREENING FOR OSTEOPOROSIS, Z78.0,asymptomatic post menopausal state TECHNIQUE: HoloNtractive Horizon C densitometer analysis of left hip, lumbar spine and left forearm. Lateral survey image of the thoracic and lumbar spine. COMPARISON: No exams were available for comparison FINDINGS: Lateral view of the thoracic and lumbar spine shows no evidence of compression fractures. Bone mineral density measurements of the lumbar spine correspond to a total T- score of -1.7, in the osteopenic range. Bone mineral density measurements of the left hip correspond to a total T-score of -1.6. The femoral neck T-score is -1.2, in the osteopenic range. Theleft forearm bone mineral density measurements correspond to a T-score of the distal 3rd of -0.6, in the normal range. IMPRESSION: Osteopenia of the spine and hip. Normal bone density of the forearm.
== END 2025-03-28 01:32 ==
PROVIDERS: PCP Nurse Practitioner Family; Visit Provider Nurse Practitioner Family
DX: Z13.820 Encounter for screening for osteoporosis (principal); Z78.0 Asymptomatic menopausal state
CPT/HCPCS: 77080